=== PATIENT | female | born 1935 | race Caucasian/White ===

== ENCOUNTER 2017-02-22 12:09 | Inpatient (IN) | payer OTHER, MEDICARE ==
[~2017-02-22] VITALS: Ht 160 cm; Wt 47.0 kg
[2017-02-22] VITALS (9 sets, daily range): BP systolic 156–195; BP diastolic 72–86; PULSE 70–84; RESP 15–18; TEMP 97.9–100.6; O2SAT 93–100
[2017-02-22] MEDS ORDERED: PROT40TA PO (13:00)
[2017-02-22] MEDS ORDERED: DILT31TA PO (13:00)
[2017-02-22] MEDS ORDERED: PAXI10TA2 PO (13:00)
[2017-02-22] MEDS ORDERED: HYDR-3516 PO (13:00)
--- NOTE | 2017-02-22 13:29 | PD ---
HPI Chief Complaint: Musculoskeletal Complaint Time Seen by Provider: 13:07 Travel History International Travel<30 days: No Contact w/Intl Traveler<30days: No Traveled to known affect area: No History of Present Illness HPI 81yo F with PMH of depression and recent hip replacement presents to the ED with c/o right wrist pain and sacral pain s/p fall today. Pt was getting ready to go to the beach and was sitting in the bed and slipped on suntan oil when she got up and slid down and hurt her right wrist. Denies any head trauma, LOC , chest pain, sob, n/v, abdominal pain, focal weakness or numbness. PFSH Past Medical History Heart Rhythm Problems: Yes Cardiovascular Problems: Yes Cerebrovascular Accident: Yes Tetanus Vaccination: < 5 Years ?: Not Past Surgical History Hysterectomy: Yes Social History Alcohol Use: No Tobacco Use: No Substance Use: No Allergies-Medications (Allergen,Severity, Reaction): Coded Allergies: No Known Allergies (Unverified , 02/22/17) Reported Meds & Prescriptions Reported Meds & Active Scripts Active Reported Hydrocodone-Acetaminophen 5-325 mg Tab 1 Tab PO Q6H PRN Paxil (Paroxetine HCl) 10 Mg Tab 10 Mg PO DAILY Cardizem (Diltiazem HCl) 30 Mg Tab 30 Mg PO DAILY Protonix (Pantoprazole Sodium) 40 Mg Tab 40 Mg PO DAILY Review of Systems Except as stated in HPI: all other systems reviewed are Neg Physical Exam Narrative GENERAL: 81yo F in moderate distress. SKIN: Focused skin assessment warm/dry. HEAD: Atraumatic. Normocephalic. EYES: Pupils equal and round. No scleral icterus. No injection or drainage. ENT: No nasal bleeding or discharge. Mucous membranes pink and moist. NECK: Trachea midline. No JVD. CARDIOVASCULAR: Regular rate and rhythm. No murmur appreciated. RESPIRATORY: No accessory muscle use. Clear to auscultation. Breath sounds equal bilaterally. GASTROINTESTINAL: Abdomen soft, non-tender, nondistended. BACK: No midline ttp thoracic or lumbar spine. No ttp bilateral hips. Mild ttp S1-2. MUSCULOSKELETAL: Right wrist: +Ecchymoses and deformity and ttp distal radius. Radial pulse 2+. Pt does not want to move fingers due to pain. No ttp right elbow. FROM right elbow. Sensation intact. NEUROLOGICAL: Awake and alert. No obvious cranial nerve deficits. Motor grossly within normal limits. Sensation intact. Normal speech. PSYCHIATRIC: Appropriate mood and affect; insight and judgment normal. Data Data Last Documented VS Vital Signs Date Time Temp Pulse Resp B/P Pulse Ox O2 Delivery O2 Flow Rate FiO2 02/22/17 15:57 76 18 168/76 97 Nasal Cannula 3 02/22/17 12:11 98.1 Orders Hand, Limited (2vws) (02/22/17 ) Pelvis, Ap Only (Routine) (02/22/17 ) Complete Blood Count With Diff (02/22/17 13:15) Basic Metabolic Panel (Bmp) (02/22/17 13:15) Prothrombin Time / Inr (Pt) (02/22/17 13:15) Act Partial Throm Time (Ptt) (02/22/17 13:15) Type And Screen (02/22/17 13:15) Morphine Inj (Morphine Inj) (02/22/17 13:30) Wrist, Complete ([id number]) (02/22/17 ) Propofol 500 Mg/50 Ml Inj (Diprivan 500 (02/22/17 14:45) Wrist, Limited (Ap&Lat) (02/22/17 ) Fiberglass Sugartong Sp Ad Arm (02/22/17 ) Sling Cradle Arm (02/22/17 ) Admit To Inpatient (02/22/17 ) Vital Signs (Adult) ROGERS.Q4H (02/22/17 16:21) Hyster Driver / Telemetry ROGERS.Q8H (02/22/17 16:21) Intake + Output 06,14,22 (02/22/17 16:21) Sodium Chlor 0.45% 1000 Ml Inj (1/2 Ns 1 (02/22/17 17:00) Sodium Chloride 0.9% Flush (Ns Flush) (02/22/17 21:00) Inpatient Certification (02/22/17 ) Npo After Midnight W/ Po Meds (02/22/17 Dinner) Admit Order (Ed Use Only) (02/22/17 16:26) Consult Orthopedic (02/22/17 ) Labs Laboratory Tests Test 02/22/17 13:52 White Blood Count 14.4 TH/MM3 Red Blood Count 5.02 MIL/MM3 Hemoglobin 15.2 GM/DL Hematocrit 45.6 % Mean Corpuscular Volume 90.8 FL Mean Corpuscular Hemoglobin 30.2 PG Mean Corpuscular Hemoglobin 33.3 % Concent Red Cell Distribution Width 12.7 % Platelet Count 152 TH/MM3 Mean Platelet Volume 6.7 FL Neutrophils (%) (Auto) 86.1 % Lymphocytes (%) (Auto) 9.5 % Monocytes (%) (Auto) 4.2 % Eosinophils (%) (Auto) 0.1 % Basophils (%) (Auto) 0.1 % Neutrophils # (Auto) 12.4 TH/MM3 Lymphocytes # (Auto) 1.4 TH/MM3 Monocytes # (Auto) 0.6 TH/MM3 Eosinophils # (Auto) 0.0 TH/MM3 Basophils # (Auto) 0.0 TH/MM3 CBC Comment DIFF FINAL Differential Comment Prothrombin Time 15.1 SEC Prothromb Time International 1.3 RATIO Ratio Activated Partial 26.6 SEC Thromboplast Time Sodium Level 140 MEQ/L Potassium Level 3.6 MEQ/L Chloride Level 101 MEQ/L Carbon Dioxide Level 30.9 MEQ/L Anion Gap 8 MEQ/L Blood Urea Nitrogen 19 MG/DL Creatinine 1.43 MG/DL Estimat Glomerular Filtration 35 ML/MIN Rate Random Glucose 244 MG/DL Calcium Level 9.4 MG/DL Blood Type O POSITIVE Antibody Screen NEGATIVE Blood Bank Comment MDM Medical Decision Making Medical Screen Exam Complete: Yes Emergency Medical Condition: Yes Differential Diagnosis Fracture vs. dislocation vs. contusion Narrative Course 81yo F with right wrist deformity after slip and fall today. Xray right hand/ wrist: acute displaced, angulated fracture involving right distal radius. Acute fracture involving distal ulna. Xray pelvis showed no acute fracture or dislocation. Right wrist was reduced under procedural sedation with improved alignment. I discussed case with Dr. Pineda and he recommends admission to hospitalist and pt will need surgery. NPO after midnight. Spoke with Dr. Sharma who accepted the patient. Procedures Procedure Narrative After the risks and benefits were discussed the following procedure was performed: MODERATE SEDATION: The patient was placed on a vehicle monitor technician and pulse oximetry. An ambu bag and suction was immediately available at bedside. The patient was monitored by the nurse. Oxygen saturation , heart rate and blood pressure were monitored. Procedural sedation was acheived using 30mg of propofol . The patient was observed until awake and alert. Procedural Sedation time in attendance was 25 minutes. Diagnosis Primary Impression: Fracture of distal end of radius and ulna Qualified Code: S52.501A - Fracture of distal end of radius and ulna, right, closed, initial encounter Admitting Information Admitting Physician Requests: Admit Vera Han DO Feb 22, 2017 13:29 Vera Han DO Feb 22, 2017 13:29
[2017-02-22] MEDS ORDERED: MORPHINE SULFATE 4 MG/ML INJ IV PUSH ONE (13:30)
[2017-02-22 14:16] LABS: AUTOMATED NEUTROPHIL # 12.4 TH/MM3 (1.8-7.7); BASOPHIL % 0.1 % (0.0-2.0); EOSINOPHIL % 0.1 % (0.0-4.0); HEMATOCRIT 45.6 % (35.0-46.0); HEMO FLAGS DIFF FINAL; LYMPH % 9.5 % (9.0-44.0); LYMPHOCYTE # 1.4 TH/MM3 (1.0-4.8); MEAN CELL VOLUME 90.8 FL (80.0-100.0); MEAN CORPUSCULAR HEMOGLOBIN 30.2 PG (27.0-34.0); MEAN CORPUSCULAR HGB CONC 33.3 % (32.0-36.0); MONO % 4.2 % (0.0-8.0); NEUT % 86.1 % (16.0-70.0); PLATELET COUNT 152 TH/MM3 (150-450); RED BLOOD COUNT 5.02 MIL/MM3 (4.00-5.30); RED CELL DISTRIBUTION WIDTH 12.7 % (11.6-17.2); WHITE BLOOD COUNT 14.4 TH/MM3 (4.0-11.0)
[2017-02-22 14:19] LABS: APTT (PATIENT) 26.6 SEC (24.3-30.1); INTERNATIONAL NORMALIZED RATIO 1.3 RATIO; PROTHROMBIN TIME - PATIENT 15.1 SEC (9.8-11.6)
[2017-02-22 14:27] LABS: BICARBONATE 30.9 MEQ/L (21.0-32.0); POTASSIUM 3.6 MEQ/L (3.5-5.1)
--- NOTE | 2017-02-22 14:32 | RADRPT ---
EXAM DATE/TIME: 02/22/2017 13:27 [facility] COMPARISON: No previous studies available for comparison. INDICATIONS : Fall. Right wrist pain. MEDICAL HISTORY : None. SURGICAL HISTORY : Right hip fracture repair. ENCOUNTER: Initial ACUITY: 1 day PAIN SCORE: 8/10 LOCATION: Right wrist FINDINGS: There is evidence of an acute displaced and angulated fracture involving the right distal radius. The re is also an acute fracture involving the distal ulna. Severe osteoarthritis is noted involving the first carpometacarpal joint. Severe diffuse osteoporosis is noted involving the bones of the right hand. CONCLUSION: 1. Acute displaced, angulated fracture involving the right distal radius. 2. Acute fracture involving the distal ulna. 3. 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 4. Severe osteoporosis involving the bones of the right hand. Kevin Montano MD on February 22, 2017 at 14:07 Board Certified Radiologist. This report was verified electronically.
--- NOTE | 2017-02-22 14:36 | RADRPT ---
EXAM DATE/TIME: 02/22/2017 13:29 [facility] COMPARISON: No previous studies available for comparison. INDICATIONS : Fall. Right wrist pain and deformity. MEDICAL HISTORY : None. SURGICAL HISTORY : Right hip fracture repair. ENCOUNTER: Initial ACUITY: 1 day PAIN SCORE: 8/10 LOCATION: Right wrist FINDINGS: There is evidence of an acute displaced angulated fracture involving the right distal radius. There is also an acute fracture involving the distal ulna. Severe osteoarthritis is noted involving the fir st carpometacarpal joint. Diffuse osteoporosis is noted involving the bones of the right wrist. Mod erate osteoarthritis is noted involving the scaphotrapezium and scaphotrapezoid joints. CONCLUSION: 1. Acute displaced and angulated fracture involving the right distal radius. 2. Acute fracture involving the distal ulna. 3. Severe osteoarthritis involving the first carpometacarpal joint and moderate osteoarthritis involv ing the scaphotrapezium and scaphotrapezoid joints. 4. 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 Kevin Montano MD on February 22, 2017 at 14:09 Board Certified Radiologist. This report was verified electronically.
--- NOTE | 2017-02-22 14:37 | RADRPT ---
EXAM DATE/TIME: 02/22/2017 13:35 [facility] COMPARISON: No previous studies available for comparison. INDICATIONS : Fall. Pelvic pain. MEDICAL HISTORY : None. SURGICAL HISTORY : Right hip fracture repair. ENCOUNTER: Initial ACUITY: 1 day PAIN SCORE: 4/10 LOCATION: Bilateral pelvis FINDINGS: Hardware is noted within the right proximal femur status post ORIF. There is no acute fracture or dis location of the bony pelvis. Degenerative changes are noted involving the lower lumbar spine. CONCLUSION: 1. No acute fracture or dislocation. 2. Degenerative changes involving the lower lumbar spine. Kevin Montano MD on February 22, 2017 at 14:12 Board Certified Radiologist. This report was verified electronically.
[2017-02-22] MEDS ORDERED: PROPOFOL 500 MG/50 ML BTL IV ONE (14:45)
--- NOTE | 2017-02-22 16:09 | RADRPT ---
EXAM DATE/TIME: 02/22/2017 15:28 [facility] COMPARISON: WRIST RIGHT COMPLETE ([id number]), February 22, 2017, 13:29. INDICATIONS : Post reduction right wrist. MEDICAL HISTORY : None. SURGICAL HISTORY : Hip ENCOUNTER: Subsequent ACUITY: 1 day PAIN SCORE: 5/10 LOCATION: Right wrist FINDINGS: The right wrist has been casted status post closed reduction of right distal radial and ulnar fractur es. There is some residual displacement of the distal radial fragment dorsally. Arthritic changes a re again noted involving the wrist. CONCLUSION: Status post closed reduction and casting of right distal radial and ulnar fractures with some residua l dorsal displacement of the radial fracture fragment. Kevin Montano MD on February 22, 2017 at 15:57 Board Certified Radiologist. This report was verified electronically.
[2017-02-22] MEDS: SODIUM CHLOR 0.45% 1000 ML INJ 1,000 ML IV SCH (17:00)
--- NOTE | 2017-02-22 17:18 | HHI.HP ---
[facility] Service [facility] Primary Care Physician Non-Staff Admission Diagnosis Distal radius and ulna fracture Diagnoses: Chief Complaint: Fall resulting in a radial/ulnar fracture Travel History International Travel<30 Days: No Contact w/Intl Traveler <30 Da: No Traveled to Known Affected Are: No History of Present Illness This is a pleasant 81-year-old female past medical history of CVA with no deficit, history of tachycardia, and GERD who presented with a fall. Patient is visiting from [place] and stated that she used a spray for some block in the house which on the tile. Patient stated that she slipped because of this and landed on her butt on an outstretched arm. Patient did not hit her head or lose any consciousness. Patient stated that she had severe pain so was brought to the emergency department. Patient stated that in the past she had right hip surgery and after surgery she had respiratory failure from anesthesia was in the ICU for a few days. Patient stated that she does get dyspnea with walking from her bedroom to the living room. She denies any chest pain, lightheadedness or dizziness or palpitation with exertion. She stated that this has been a chronic problem. Patient stated that she was supposed to be worked up by siding installer but has not followed with a siding installer yet. Review of Systems Constitutional: DENIES: Diaphoretic episodes, Fatigue, Fever, Weight gain, Weight loss, Chills, Dizziness, Change in appetite, Night Sweats Endocrine: DENIES: Abnorml menstrual pattern, Heat/cold intolerance, Polydipsia , Polyuria, Polyphagia Eyes: DENIES: Blurred vision, Diplopia, Eye inflammation, Eye pain, Vision loss , Photosensitivity, Double Vision Ears, nose, mouth, throat: DENIES: Tinnitus, Hearing loss, Vertigo, Nasal discharge, Oral lesions, Throat pain, Hoarseness, Ear Pain, Running Nose, Epistaxis, Sinus Pain, Toothache, Odynophagia Respiratory: COMPLAINS OF: Shortness of breath, DENIES: Apneas, Cough, Snoring , Wheezing, Hemoptysis, Sputum production Cardiovascular: DENIES: Chest pain, Palpitations, Syncope, Dyspnea on Exertion , PND, Lower Extremity Edema, Orthopnea, Claudication Gastrointestinal: DENIES: Abdominal pain, Black stools, Bloody stools, Constipation, Diarrhea, Nausea, Vomiting, Difficulty Swallowing, Anorexia Genitourinary: DENIES: Abnormal vaginal bleeding, Dysmenorrhea, Dyspareunia, Sexual dysfunction, Urinary frequency, Urinary incontinence, Urgency, Hematuria , Dysuria, Nocturia, Vaginal discharge Musculoskeletal: COMPLAINS OF: Joint pain, DENIES: Muscle aches, Stiffness, Joint Swelling, Back pain, Neck pain Integumentary: DENIES: Abnormal pigmentation, Pruritus, Rash, Nail changes, Breast masses, Breast skin changes, Nipple discharge Hematologic/lymphatic: DENIES: Bruising, Lymphadenopathy Immunologic/allergic: DENIES: Eczema, Urticaria Neurologic: DENIES: Abnormal gait, Headache, Localized weakness, Paresthesias, Seizures, Speech Problems, Tremor, Poor Balance Psychiatric: DENIES: Anxiety, Confusion, Mood changes, Depression, Hallucinations, Agitation, Suicidal Ideation, Homicidal Ideation, Delusions Past Family Social History Past Medical History Tachycardia History of CVA GERD Anxiety Past Surgical History History right hip fracture repair Reported Medications Hydrocodone-Acetaminophen 5-325 mg Tab 1 Tab PO Q6H PRN Paxil (Paroxetine HCl) 10 Mg Tab 10 Mg PO DAILY Cardizem (Diltiazem HCl) 30 Mg Tab 30 Mg PO DAILY Protonix (Pantoprazole Sodium) 40 Mg Tab 40 Mg PO DAILY Allergies: Coded Allergies: No Known Allergies (Unverified , 02/22/17) Active Ordered Medications Current Medications Morphine Sulfate (Morphine Inj) 2 mg ONCE ONCE IV PUSH Last administered on 14:07; Start 02/22/17 at 13:30; Stop 02/22/17 at 13:31; Status DC Propofol 50 mg 50 mg ONCE ONCE IV Last administered on 02/22/17 15:37; Start 02/22/17 at 14:45; Stop 02/22/17 at 14:46; Status DC Sodium Chloride (1/2 NS 1000 ml Inj) 1,000 ml @ 75 mls/hr [id number] IV ; Start at 17:00 Sodium Chloride (NS Flush) 2 ml BID IV FLUSH ; Start 02/22/17 at 21:00 Diltiazem HCl (Cardizem) 30 mg DAILY PO ; Start 02/23/17 at 09:00; Status UNV Acetaminophen/ Hydrocodone Bitart ([place] 5-325 Mg) 1 tab Q6H PRN PO PAIN; Start 02/22/17 at 17:15 Pantoprazole Sodium (Protonix) 40 mg DAILY PO ; Start 02/23/17 at 09:00 Non-Formulary Medication 10 mg DAILY PO ; Start 02/23/17 at 09:00; Status UNV Clonidine (Catapres) 0.1 mg Q8HR PRN PO SBP>160 or DBP>100; Start 02/22/17 at 17:15; Status UNV Family History No past family history. Social History Patient lives in [facility]. She denied tobacco or alcohol use. Physical Exam Vital Signs Vital Signs Date Time Temp Pulse Resp B/P Pulse Ox O2 Delivery O2 Flow Rate FiO2 02/22/17 15:57 76 18 168/76 97 Nasal Cannula 3 02/22/17 15:42 76 18 189/81 98 Nasal Cannula 3 02/22/17 15:24 98 3.00 02/22/17 12:11 98.1 84 15 195/86 99 Physical Exam GENERAL: This is a well-nourished, well-developed patient, in no apparent distress. SKIN: No rashes, ecchymoses or lesions. Cool and dry. HEAD: Atraumatic. Normocephalic. No temporal or scalp tenderness. EYES: Pupils equal round and reactive. Extraocular motions intact. No scleral icterus. No injection or drainage. ENT: Nose without bleeding, purulent drainage or septal hematoma. Throat without erythema, tonsillar hypertrophy or exudate. Uvula midline. Airway patent. NECK: Trachea midline. No JVD or lymphadenopathy. Supple, nontender, no meningeal signs. CARDIOVASCULAR: Regular rate and rhythm without murmurs, gallops, or rubs. RESPIRATORY: Clear to auscultation. Breath sounds equal bilaterally. No wheezes , rales, or rhonchi. GASTROINTESTINAL: Abdomen soft, non-tender, nondistended. No hepato-splenomegaly , or palpable masses. No guarding. MUSCULOSKELETAL: Right arm swelling with limited range of motion of the wrist. NEUROLOGICAL: Awake and alert. Cranial nerves II through XII intact. Motor and sensory grossly within normal limits. Five out of 5 muscle strength in all muscle groups. Normal speech. Laboratory Laboratory Tests Test 7/25/17 13:52 White Blood Count 14.4 Red Blood Count 5.02 Hemoglobin 15.2 Hematocrit 45.6 Mean Corpuscular Volume 90.8 Mean Corpuscular Hemoglobin 30.2 Mean Corpuscular Hemoglobin 33.3 Concent Red Cell Distribution Width 12.7 Platelet Count 152 Mean Platelet Volume 6.7 Neutrophils (%) (Auto) 86.1 Lymphocytes (%) (Auto) 9.5 Monocytes (%) (Auto) 4.2 Eosinophils (%) (Auto) 0.1 Basophils (%) (Auto) 0.1 Neutrophils # (Auto) 12.4 Lymphocytes # (Auto) 1.4 Monocytes # (Auto) 0.6 Eosinophils # (Auto) 0.0 Basophils # (Auto) 0.0 CBC Comment DIFF FINAL Differential Comment Prothrombin Time 15.1 Prothromb Time International 1.3 Ratio Activated Partial 26.6 Thromboplast Time Sodium Level 140 Potassium Level 3.6 Chloride Level 101 Carbon Dioxide Level 30.9 Anion Gap 8 Blood Urea Nitrogen 19 Creatinine 1.43 Estimat Glomerular Filtration 35 Rate Random Glucose 244 Calcium Level 9.4 Blood Type O POSITIVE Antibody Screen NEGATIVE Blood Bank Comment Result Diagram: 02/22/17 1352 02/22/17 1352 Imaging Last Impressions Wrist X-Ray 02/22/17 0000 Signed Impressions: Service Date/Time: Wednesday, February 22, 2017 13:29 - CONCLUSION: 1. Acute displaced and angulated fracture involving the right distal radius. 2. Acute fracture involving the distal ulna. 3. 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 4. 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 Kevin Montano MD Pelvis X-Ray 02/22/17 0000 Signed Impressions: Service Date/Time: Wednesday, February 22, 2017 13:35 - CONCLUSION: 1. No acute fracture or dislocation. 2. Degenerative changes involving the lower lumbar spine. Kevin Montano MD Hand X-Ray 02/22/17 0000 Signed Impressions: Service Date/Time: Wednesday, February 22, 2017 13:27 - CONCLUSION: 1. Acute displaced, angulated fracture involving the right distal radius. 2. Acute fracture involving the distal ulna. 3. 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 4. Severe osteoporosis involving the bones of the right hand. Kevin Montano MD Assessment and Plan Assessment and Plan 81-year-old female who presented with a mechanical fall Acute displaced and angulated fracture involving the right distal radius and acute fracture involving the distal ulna. -Orthopedic surgery consulted and recommended surgery. -Patient does have a baseline dyspnea and past complications after surgery. Will need to consult siding installer for cardiac clearance. -Will get EKG, chest x-ray, echo. -Will have patient nothing by mouth tonight. 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 Patient will need a DEXA scan as outpatient. Exertional dyspnea -Unknown diagnosis. This has been patient's baseline. -see workup as above. History of tachycardia/GERD/anxiety -Will restart home medication. DVT prophylaxis -SCDs Code Status Discussed CODE STATUS with patient and she wants to be DO NOT RESUSCITATE. During discussion of CODE STATUS her 2 daughters were at the bedside. Discussed Condition With patient and 2 daughters Physician Certification 2 Midnight Certification Type: Admission for Inpatient Services Order for Inpatient Services The services are ordered in accordance with Medicare regulations or non- Medicare payer requirements, as applicable. In the case of services not specified as inpatient-only, they are appropriately provided as inpatient services in accordance with the 2-midnight benchmark. Estimated LOS (days): 2 2 days is the estimated time the patient will need to remain in the hospital, assuming treatment plan goals are met and no additional complications. Post-Hospital Plan: Home Health Marlene Sharma MD Feb 22, 2017 17:18
[2017-02-22] MEDS ORDERED: PILL SPLITTER OTHER PRN (17:30)
--- NOTE | 2017-02-22 17:45 | RADRPT ---
EXAM DATE/TIME: 02/22/2017 17:29 [facility] COMPARISON: No previous studies available for comparison. INDICATIONS : Shortness of breath. MEDICAL HISTORY : Cerebrovascular disease. SURGICAL HISTORY : Hysterectomy. ENCOUNTER: Initial ACUITY: 1 day PAIN SCORE: 0/10 LOCATION: Bilateral chest FINDINGS: PA and lateral views of the chest show hyperinflation to lungs. A calcified granuloma is seen within the left lower lobe. No infiltrate or effusion. Heart is mildly enlarged. Aorta is calcified and mild ly tortuous. Old right-sided rib fractures and left humeral neck fracture noted. CONCLUSION: 1. No acute disease. 2. Hyperinflation suggesting COPD. 3. Mild cardiomegaly. Jj Miller Jr., MD on February 22, 2017 at 17:43 Board Certified Radiologist. This report was verified electronically.
[2017-02-22] MEDS: SODIUM CHLORIDE 0.9% FLUSH 10 ML FLUSH IV FLUSH SCH (20:24)
[2017-02-22] MEDS: cloNIDine HCL 0.1 MG TAB PO PRN (20:24)
[2017-02-23] VITALS (8 sets, daily range): BP systolic 104–184; BP diastolic 65–81; PULSE 64–94; RESP 16–18; TEMP 97.5–99.3; O2SAT 94–96
[2017-02-23] MEDS ORDERED: INSULIN HUMAN REGULAR 1,000 UNITS/10 ML VIAL SQ PRN (03:30)
[2017-02-23] MEDS ORDERED: LACTATED RINGER'S 1000 ML IV PRN (03:30)
[2017-02-23] MEDS ORDERED: SODIUM CHLORID 0.9% 500 ML IV PRN (03:30)
[2017-02-23] MEDS ORDERED: CHLORHEXIDINE GLUCONATE 2 % 1 PACK (2 CLOTHS) TOPICAL PRN (03:30)
[2017-02-23] MEDS ORDERED: POVIDONE IODINE 5% (ANTISEPSIS KIT) 4 APPLICATIONS EACH NARE PRN (03:30)
[2017-02-23 06:59] LABS: HEMATOCRIT 36.1 % (35.0-46.0); MEAN CELL VOLUME 89.3 FL (80.0-100.0); MEAN CORPUSCULAR HEMOGLOBIN 30.9 PG (27.0-34.0); MEAN CORPUSCULAR HGB CONC 34.6 % (32.0-36.0); PLATELET COUNT 114 TH/MM3 (150-450); RED BLOOD COUNT 4.04 MIL/MM3 (4.00-5.30); RED CELL DISTRIBUTION WIDTH 12.5 % (11.6-17.2); REVIEW FLAG FINAL; WHITE BLOOD COUNT 9.3 TH/MM3 (4.0-11.0)
[2017-02-23 07:20] LABS: BICARBONATE 28.8 MEQ/L (21.0-32.0); POTASSIUM 3.3 MEQ/L (3.5-5.1)
[2017-02-23] MEDS: PARoxetine HCL 20 MG TAB PO SCH (08:58)
[2017-02-23] MEDS: PANTOPRAZOLE SOD 40 MG DELAYED RELEASE TAB PO SCH (08:58)
[2017-02-23] MEDS: DILTIAZEM HCL 30 MG TAB PO SCH (08:58)
[2017-02-23] MEDS: SODIUM CHLORIDE 0.9% FLUSH 10 ML FLUSH IV FLUSH SCH ×2 (09:00→21:00)
--- NOTE | 2017-02-23 09:08 | PD.ORT.PN ---
Subjective Subjective Remarks Visiting from out of town. Slip and fall on wet floor. Right distal radius fracture Objective Vitals Vital Signs Date Time Temp Pulse Resp B/P Pulse Ox O2 Delivery O2 Flow Rate FiO2 02/23/17 08:00 98.6 71 18 153/71 95 02/23/17 04:10 98.6 75 17 159/74 94 02/23/17 00:47 Nasal Cannula 3.00 02/22/17 23:55 100.6 79 17 156/72 94 02/22/17 21:05 71 02/22/17 19:45 75 02/22/17 18:51 60 16 156/73 97 02/22/17 18:51 97.9 70 17 175/79 93 02/22/17 18:27 78 18 178/81 100 Room Air 2 02/22/17 15:57 76 18 168/76 97 Nasal Cannula 3 02/22/17 15:42 76 18 189/81 98 Nasal Cannula 3 02/22/17 15:24 98 Nasal Cannula 3.00 02/22/17 15:24 98 3.00 02/22/17 12:11 98.1 84 15 195/86 99 I/O 02/22/17 02/22/17 02/22/17 02/23/17 02/23/17 02/23/17 07:00 15:00 23:00 07:00 15:00 23:00 Intake Total 146 ml 461 ml 240 ml Balance 146 ml 461 ml 240 ml Intake Oral 240 ml IV Total 146 ml 461 ml # Voids 2 # Bowel Movements 0 Result Diagram: 02/23/17 0551 02/23/17 0551 Other Results Laboratory Tests Test 02/22/17 13:52 Prothrombin Time 15.1 SEC (9.8-11.6) Prothromb Time International 1.3 RATIO Ratio Imaging Last 72 hours Impressions Wrist X-Ray 02/22/17 0000 Signed Impressions: Service Date/Time: Wednesday, February 22, 2017 15:28 - CONCLUSION: Status post closed reduction and casting of right distal radial and ulnar fractures with some residual dorsal displacement of the radial fracture fragment. Kevin Montano MD Wrist X-Ray 02/22/17 0000 Signed Impressions: Service Date/Time: Wednesday, February 22, 2017 13:29 - CONCLUSION: 1. Acute displaced and angulated fracture involving the right distal radius. 2. Acute fracture involving the distal ulna. 3. 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 4. 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 Kevin Montano MD Pelvis X-Ray 02/22/17 0000 Signed Impressions: Service Date/Time: Wednesday, February 22, 2017 13:35 - CONCLUSION: 1. No acute fracture or dislocation. 2. Degenerative changes involving the lower lumbar spine. Kevin Montano MD Hand X-Ray 02/22/17 0000 Signed Impressions: Service Date/Time: Wednesday, February 22, 2017 13:27 - CONCLUSION: 1. Acute displaced, angulated fracture involving the right distal radius. 2. Acute fracture involving the distal ulna. 3. 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 4. Severe osteoporosis involving the bones of the right hand. Kevin Montano MD Chest X-Ray 02/22/17 0000 Signed Impressions: Service Date/Time: Wednesday, February 22, 2017 17:29 - CONCLUSION: 1. No acute disease. 2. Hyperinflation suggesting COPD. 3. Mild cardiomegaly. Jj Miller Jr., MD Objective Remarks Right upper extremity: Sure tong splint intact. No pain shoulder. Distally intact sensation of her radial ulnar and median nerve distributions with good capillary refills. She is able to move her fingers both full extension and flexion Assessment & Plan Assessment and Plan Angulated right distal radius fracture Maintain splint Surgery for open reduction internal fixation of right distal radius when medically cleared. More than likely will be on 02/24. Continue nothing by mouth status. If not cleared this morning we will resume diet. And make her nothing by mouth after midnight Yayo Yoo Jr. Feb 23, 2017 09:08
--- NOTE | 2017-02-23 09:31 | MB ---
cc: SOLIS PRABHAKAR M.D. DATE OF CONSULTATION 02/23/2017 REASON FOR CONSULTATION Cardiac clearance. HISTORY OF PRESENT ILLNESS The patient is a 81-year-old white female from [place], with a history of CVA two years ago, gastroesophageal reflux disease, diabetes who was admitted to the hospital status post a fall resulting in right wrist fracture. We have been asked to see her for cardiac clearance. The patient states for some time now she has had intermittent episodes of primarily exertional left-sided chest discomfort described as "pressure." The chest discomforts usually last only a few minutes. The are not associated with shortness of breath, nausea or diaphoresis. She denies any episodes occurring at rest or awakening her from sleep. The patient notes chronic moderate dyspnea on exertion. For the most part she is sedentary. She denies paroxysmal nocturnal dyspnea, pedal edema, palpitations, lightheadedness, syncope, near-syncope. PAST MEDICAL HISTORY 1. CVA two years ago. 2. Gastroesophageal reflux disease. 3. Borderline diet-controlled diabetes. PAST SURGICAL HISTORY Hysterectomy. CARDIAC MEDICATIONS AT HOME Cardizem 30 mg daily. ALLERGIES No known drug allergies. FAMILY HISTORY Noncontributory. SOCIAL HISTORY The patient is a former smoker. She quit at age 62. She denies alcohol abuse. REVIEW OF SYSTEMS As in the History of Present Illness, otherwise negative or noncontributory. She also denies headache, visual changes, unilateral weakness or numbness, abdominal pain, melena, dyspepsia, bright red blood per rectum. PHYSICAL EXAMINATION VITAL SIGNS: Blood pressure 159/74 with a pulse of 75, respirations 16. PHYSICAL EXAMINATION HEAD AND NECK: On examination jugular venous pressure is normal. Carotid pulses are 2+ bilaterally and without bruits. CHEST: Examination of the chest reveals clear lung ojeda. HEART: On cardiac examination she has a regular rhythm and rate with a grade 2 to 3/6 systolic murmur heard throughout the precordium. The S2 heart sound is normal. No gallop is audible. ABDOMINAL EXAMINATION: She has a soft, nontender abdomen. Bowel sounds are present. There is no definite hepatosplenomegaly. EXTREMITIES: Examination of the extremities reveals no clubbing, cyanosis or edema. EKG Sinus rhythm, lateral ST and T-wave abnormality, consider ischemia. LABORATORY DATA Normal CBC, potassium 3.3, BUN 18, creatinine 1.18. CHEST X-RAY Hyperinflation suggesting COPD, no acute disease. IMPRESSION A 81-year-old white female with a history of borderline diabetes, CVA, gastroesophageal reflux disease, now admitted with a right wrist fracture. We have been asked to see the patient for cardiac clearance. The patient relates intermittent episodes of angina-like chest discomfort. These angina-like chest pains seem to occur with overall minimal to mild exertion. She may very well have underlying severe coronary artery disease. The patient also relates chronic dyspnea without any other signs or symptoms of congestive heart failure. She does have a systolic murmur on exam suggestive of mitral regurgitation and/or aortic valve sclerosis. Her risk factors for coronary disease include advanced age, borderline diabetes. She may also have hypertension. RECOMMENDATIONS I would check an echocardiogram to assess her left ventricular function and her valvular function as well as a Lexiscan nuclear stress test. At his point it appears her cardiovascular risk for perioperative mortality/morbidity may be at least moderate in degree but will await results of the above testing before making any conclusions about her risk. Solis Prabhakar MD [facility]/SUSHANT /8:10 AM /9:16 AM MTDD
--- NOTE | 2017-02-23 09:43 | MB ---
cc: SHAGGY GRANDE DATE OF CONSULTATION 02/23/2017 REASON FOR CONSULTATION Right wrist fracture. CONSULTING PHYSICIAN Dr. Marlene Sharma. HISTORY Ms. Rizo is a 81-year-old female who has a history of previous CVA without deficits. She is here visiting from [place]. She states that her family members had used some spray sunblock. Some of it had gotten on the floor, the floor was slippery. She slipped and fell and landed on her right wrist. She had immediate right wrist pain. She presented to the emergency room where x-rays revealed a displaced right distal radius fracture. She is currently awake and alert. Her only complaint is her right wrist. Pain is worse with movement and is improved with rest. She has a history of previous left wrist fracture treated open reduction internal fixation. PAST MEDICAL HISTORY Illnesses: 1. Tachycardia 2. CVA 3. Reflux 4. Anxiety SURGERIES 1. Left wrist ORIF 2. Right hip ORIF MEDICATIONS Medications include: 1. Hydrocodone 2. Paxil 3. Cardizem 4. Protonix ALLERGIES NO KNOWN DRUG ALLERGIES. FAMILY HISTORY Noncontributory SOCIAL HISTORY The patient lives in [place]. She denies alcohol, tobacco or drug use. REVIEW OF SYSTEMS The patient denies headache, visual changes, neck pain, chest pain, shortness of breath, abdominal pain, nausea, vomiting, recent weight loss or numbness or tingling of extremities. She denies bowel or bladder incontinence. She complains of right wrist pain. Pain is worse with movement. PHYSICAL EXAMINATION The patient is a pleasant 81-year female who is awake and alert. She is alert and oriented x3. She appears well-developed and well-nourished. VITAL SIGNS: Temperature 98.6, pulse 71, respirations 18, blood pressure 153/71, O2 sat 95% on three liters nasal cannula. HEAD: The patient is normocephalic. EYES: Pupils are equal. NECK: Soft and nontender. Trachea is midline. ABDOMEN: Soft, nontender, nondistended. EXTREMITIES: Examination of the right arm reveals no pain with shoulder or elbow motion. She is diffusely tender around the wrist. Skin is intact. Pulses are palpable. She has good cap refill in her fingers. Examination of left arm reveals no pain with shoulder, elbow or wrist motion. Skin is intact. Radial pulses palpable. Sensation is intact. Examination of bilateral lower extremities reveals no significant pain with hip, knee or ankle motion. Skin is intact to both feet. Dorsalis pedis pulses are palpable. Sensation is intact. X-RAYS X-rays of the right wrist were reviewed. X-rays reveal an angulated and partially displaced right distal radius fracture. IMPRESSION 1. Right distal radius fracture. 2. Probable osteoporosis 3. History of CVA. PLAN Treatment options were discussed with the patient. I discussed surgical and nonsurgical options. At this point, the patient states she would prefer to have surgery to help stabilize and hold the fracture reduced. The risks of surgery include bleeding, infection, injury to arteries, nerves and blood vessels, nonunion, malunion, painful hardware as well as medical complications including blood clot, stroke, heart attack and . I did explain to her that nonoperative treatment in a cast may yield acceptable alignment. Her fracture does not appear to be relatively unstable and may likely displace in the cast. All questions were answered. A mid-level provider in my office, nurse practitioner or PA, may see this patient on a follow-up basis and continue to implement the objective of this plan including: Starting or adjusting medications, injections of muscle, tendon, bursa or joints, cast application, orthotic or brace application, physical therapy, further radiographic studies including x-ray, MRI, CT, ultrasounds or bone scan, vascular studies, neurologic studies, or other specialist consultations, and proceeding with surgical management as appropriate. MD BRYCE Miranda/KENDALL /9:04 AM /9:31 AM
[2017-02-23] MEDS: SODIUM CHLOR 0.45% 1000 ML INJ 1,000 ML IV SCH ×2 (09:44→21:00)
[2017-02-23] MEDS ORDERED: REGADENOSON INJ 0.4 MG/5 ML SYR ONE (13:09)
--- NOTE | 2017-02-23 13:48 | HHI.PR ---
Subjective Remarks Follow-up for wrist fracture Patient seen at the bedside and she is scheduled to get a nuclear stress test soon. Her siblings are at the bedside. They stated that they made a mistake and that patient did not go to the ICU after hip surgery. She stated that she did well with anesthesia. Patient also has a history of tobacco use. She stated that she smoked for about 30 years and stopped around the age of 62. Otherwise patient has no other complaints. Her daughters at the bedside. Objective Vitals Vital Signs Date Time Temp Pulse Resp B/P Pulse Ox O2 Delivery O2 Flow Rate FiO2 02/23/17 11:44 97.5 69 18 140/66 96 02/23/17 08:00 98.6 71 18 153/71 95 02/23/17 04:10 98.6 75 17 159/74 94 02/23/17 00:47 Nasal Cannula 3.00 02/22/17 23:55 100.6 79 17 156/72 94 02/22/17 21:05 71 02/22/17 19:45 75 02/22/17 18:51 60 16 156/73 97 02/22/17 18:51 97.9 70 17 175/79 93 02/22/17 18:27 78 18 178/81 100 Room Air 2 02/22/17 15:57 76 18 168/76 97 Nasal Cannula 3 02/22/17 15:42 76 18 189/81 98 Nasal Cannula 3 02/22/17 15:24 98 Nasal Cannula 3.00 02/22/17 15:24 98 3.00 I/O 02/22/17 02/22/17 02/22/17 02/23/17 02/23/17 02/23/17 07:00 15:00 23:00 07:00 15:00 23:00 Intake Total 146 ml 461 ml 240 ml Balance 146 ml 461 ml 240 ml Intake Oral 240 ml IV Total 146 ml 461 ml # Voids 2 # Bowel Movements 0 Result Diagram: 02/23/17 0551 02/23/17 0551 Imaging Last Impressions Wrist X-Ray 02/22/17 0000 Signed Impressions: Service Date/Time: Wednesday, February 22, 2017 15:28 - CONCLUSION: Status post closed reduction and casting of right distal radial and ulnar fractures with some residual dorsal displacement of the radial fracture fragment. Kevin Montano MD Pelvis X-Ray 02/22/17 0000 Signed Impressions: Service Date/Time: Wednesday, February 22, 2017 13:35 - CONCLUSION: 1. No acute fracture or dislocation. 2. Degenerative changes involving the lower lumbar spine. Kevin Montano MD Hand X-Ray 02/22/17 0000 Signed Impressions: Service Date/Time: Wednesday, February 22, 2017 13:27 - CONCLUSION: 1. Acute displaced, angulated fracture involving the right distal radius. 2. Acute fracture involving the distal ulna. 3. 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 4. Severe osteoporosis involving the bones of the right hand. Kevin Montano MD Chest X-Ray 02/22/17 0000 Signed Impressions: Service Date/Time: Wednesday, February 22, 2017 17:29 - CONCLUSION: 1. No acute disease. 2. Hyperinflation suggesting COPD. 3. Mild cardiomegaly. Jj Miller Jr., MD Objective Remarks GENERAL: This is a well-nourished, well-developed patient, in no apparent distress. CARDIOVASCULAR: Regular rate and rhythm without murmurs, gallops, or rubs. RESPIRATORY: Clear to auscultation. Breath sounds equal bilaterally. No wheezes , rales, or rhonchi. GASTROINTESTINAL: Abdomen soft, non-tender, nondistended. No hepato-splenomegaly , or palpable masses. No guarding. MUSCULOSKELETAL: Right arm swelling with limited range of motion of the wrist. NEUROLOGICAL: Awake and alert. Cranial nerves II through XII intact. Motor and sensory grossly within normal limits. Five out of 5 muscle strength in all muscle groups. Normal speech. Medications and IVs Current Medications Morphine Sulfate (Morphine Inj) 2 mg ONCE ONCE IV PUSH Last administered on 14:07; Start 02/22/17 at 13:30; Stop 02/22/17 at 13:31; Status DC Propofol 50 mg 50 mg ONCE ONCE IV Last administered on 02/22/17 15:37; Start 02/22/17 at 14:45; Stop 02/22/17 at 14:46; Status DC Sodium Chloride (1/2 NS 1000 ml Inj) 1,000 ml @ 75 mls/hr [id number] IV Last administered on 02/23/17 09:44; Start 02/22/17 at 17:00 Sodium Chloride (NS Flush) 2 ml BID IV FLUSH Last administered on 02/22/17 20: 24; Start 02/22/17 at 21:00 Diltiazem HCl (Cardizem) 30 mg DAILY PO Last administered on 02/23/17 08:58; Start 02/23/17 at 09:00 Acetaminophen/ Hydrocodone Bitart ([place] 5-325 Mg) 1 tab Q6H PRN PO PAIN; Start 02/22/17 at 17:15 Pantoprazole Sodium (Protonix) 40 mg DAILY PO Last administered on 02/23/17 08 :58; Start 02/23/17 at 09:00 Paroxetine HCl (Paxil) 10 mg DAILY PO Last administered on 02/23/17 08:58; Start 02/23/17 at 09:00 Clonidine (Catapres) 0.1 mg Q8H PRN PO SBP>160 or DBP>100 Last administered on 02/22/17 20:24; Start 02/22/17 at 17:15 Miscellaneous 1 ea 1 ea UNSCH PRN OTHER SEE LABEL COMMENTS; Start 02/22/17 at 17:30 Lactated Ringer's 1,000 ml @ 30 mls/hr Q24H PRN IV SEE LABEL COMMENTS; Start at 03:30; Stop 02/26/17 at 03:29 Sodium Chloride (NS 500 ml Inj) 500 ml @ 30 mls/hr [id number] PRN IV SEE LABEL COMMENTS; Start 02/23/17 at 03:30; Stop 02/26/17 at 03:29 Povidone Iodine (Betadine 5% Antisepsis Kit) 1 applic ADVANCED MANUFACTURING ASSOCIATE PRN EACH NARE SEE LABEL COMMENTS; Start 02/23/17 at 03:30; Stop 02/26/17 at 03:29 Chlorhexidine Gluconate (Chlorhexidine 2% Cloth) 3 pack [employer]ED MANUFACTURING ASSOCIATE PRN TOPICAL SEE LABEL COMMENTS; Start 02/23/17 at 03:30; Stop 02/26/17 at 03:29 Insulin Human Regular (NovoLIN R INJ) See Protocol Table ... ADVANCED MANUFACTURING ASSOCIATE PRN SQ SEE PROTOCOL TABLE; Start 02/23/17 at 03:30; Stop 02/26/17 at 03:29 Regadenoson (Lexiscan Inj) 0.4 mg STK-MED ONCE .ROUTE Last administered on 02/23t 13:09; Start 02/23/17 at 13:09; Stop 02/23/17 at 13:10; Status DC A/P Assessment and Plan 81-year-old female who presented with a mechanical fall Acute displaced and angulated fracture involving the right distal radius and acute fracture involving the distal ulna. -Orthopedic surgery consulted and ff. -EKG reviewed. Chest x-ray suggests patient may have COPD but otherwise clear. Echo and nuclear stress test pending. -Sewing Machine Maintenance Mechanic consulted for cardiac clearance. At the moment patient is moderate risk pending final workup. 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 Patient will need a DEXA scan as outpatient. Exertional dyspnea -Most likely patient has COPD. Patient told can follow-up as outpatient and have a pulmonary function test done. Patient stated that she understood. History of tachycardia/GERD/anxiety -Continue home medication. DVT prophylaxis -SCDs Discharge Planning Pending echo and nuclear stress test. Most likely patient will be scheduled for surgery tomorrow. Marlene Sharma MD Feb 23, 2017 13:48
[2017-02-23] MEDS: ACETAMINOPHEN/HYDROcodone 325 MG/5 MG TAB PO PRN (14:37)
--- NOTE | 2017-02-23 15:00 | RADRPT ---
EXAM DATE/TIME: 02/23/2017 12:41 [facility] COMPARISON: No previous studies available for comparison. INDICATIONS : Mid chest pain for one day. Angina. DOSE: 25.5 mCi Tc99m Myoview at stress. 8.1 mCi Tc99m Myoview at rest. 0.4 mg Lexiscan STRESS SYMPTOMS: None noted. EJECTION FRACTION: > 70% MEDICAL HISTORY : None SURGICAL HISTORY : Thyroidectomy. ENCOUNTER: Initial ACUITY: 1 day PAIN SCALE: 5/10 LOCATION: Midsternal chest TECHNIQUE: The patient underwent pharmacologic stress with infusion of prescribed dose. Continuous ECG tracing was monitored during stress. Gated SPECT imaging was performed after stress and conventional SPECT i maging was performed at rest. The examination was performed on a SPECT/CT scanner, both attenuation and non-corrected datasets were reviewed. FINDINGS: DISTRIBUTION: The maximum perfused segment at stress is in the anterior wall. PERFUSION STUDY: The pattern of perfusion at stress is within normal limits. GATED STUDY: There is intact wall motion and thickening without hypokinetic or dyskinetic segments. CONCLUSION: Normal examination. RISK CATEGORY: Low (<1% Annual Mortality Rate) Basim Brizuela MD on February 23, 2017 at 14:57 Board Certified Radiologist. This report was verified electronically.
[2017-02-23 17:24] LABS: BICARBONATE 28.5 MEQ/L (21.0-32.0); POTASSIUM 3.6 MEQ/L (3.5-5.1)
--- NOTE | 2017-02-23 20:00 | ECHRPT ---
Indication: Shortness of breath CONCLUSIONS Normal left ventricular size. Mild concentric left ventricular hypertrophy. No regional wall motion abnormalities are present. Normal LV systolic function, estimated EF 65%. There is a prominent basal left ventricular septum with dynamic outflow tract obstruction consistent with obstructive physiology. LV outflow tract peak gradient 64 mmHg, mean gradient 33 mmHg. Mitral annular calcification is present. [id number]-bbidpt mitral valve regurgitation. Aortic valve sclerosis is present. Mild thickening of the aortic valve leaflets. Moderate aortic valve regurgitation. No aortic valve stenosis. There is moderate tricuspid regurgitation. The estimated pulmonary arterial pressure is 38mmHg. BP: 159 / 74 HR: 75 Rhythm: Sinus MEASUREMENTS (Male / Female) Normal Values Technical Quality:Good 2D ECHO LV Diastolic Diameter PLAX 4.2 cm 4.2 - 5.9 / 3.9 - 5.3 cm LV Systolic Diameter PLAX 2.9 cm IVS Diastolic Thickness 1.0 cm 0.6 - 1.0 / 0.6 - 0.9 cm LVPW Diastolic Thickness 0.7 cm 0.6 - 1.0 / 0.6 - 0.9 cm LV Relative Wall Thickness 0.4 RV Internal Dim ED PLAX 2.2 cm LA Systolic Diameter LX 2.9 cm 3.0 - 4.0 / 2.7 - 3.8 cm M-MODE Aortic Root Diameter MM 3.2 cm AV Cusp Separation MM 1.9 cm DOPPLER AV Peak Velocity 439.0 cm/s AV Peak Gradient 77.1 mmHg AV Mean Gradient 33.0 mmHg AV Velocity Time Integral 97.5 cm LVOT Peak Velocity 258.0 cm/s LVOT Peak Gradient 26.6 mmHg LVOT Velocity Time Integral 61.4 cm MV Peak Velocity 123.0 cm/s MV Peak Gradient 6.1 mmHg MV Mean Velocity 80.3 cm/s MV Mean Gradient 3.0 mmHg MV Area PHT 2.9 cm MR Peak Velocity 747.0 cm/s MR Peak Gradient 223.2 mmHg Mitral E Point Velocity 91.9 cm/s Mitral A Point Velocity 107.0 cm/s Mitral E to A Ratio 0.9 TR Peak Velocity 288.0 cm/s TR Peak Gradient 33.2 mmHg FINDINGS LEFT VENTRICLE Normal left ventricular size. Mild concentric left ventricular hypertrophy. The left ventricular systolic function is normal with an estimated ejection fraction in the range of 60-65%. No regional wall motion abnormalities are present. There is a prominent basal left ventricular septum with dynamic outflow tract obstruction consistent with obstructive physiology. RIGHT VENTRICLE Normal right ventricular size and systolic function. LEFT ATRIUM The left atrial size is normal. RIGHT ATRIUM The right atrial size is normal. ATRIAL SEPTUM Normal atrial septal thickness without atrial level shunting by limited color doppler interrogation. AORTA The aortic root and proximal ascending aorta are normal in size on limited imaging. MITRAL VALVE Mitral annular calcification is present. [id number] mitral valve regurgitation. AORTIC VALVE Aortic valve sclerosis is present. Mild thickening of the aortic valve leaflets. Moderate aortic valve regurgitation. Aortic valve mean gradient is 33 mmHg. No aortic valve stenosis. TRICUSPID VALVE There is moderate tricuspid regurgitation. The estimated pulmonary arterial pressure is 38mmHg. PULMONARY VALVE The pulmonary valve is not well visualized. VESSELS The inferior vena cava is normal in size. PERICARDIUM No pericardial effusion. Tessy Hughes MD, FACC (Electronically Signed) Final Date:23 February 2017 19:58
[2017-02-23] MEDS: cloNIDine HCL 0.1 MG TAB PO PRN (20:59)
--- NOTE | 2017-02-23 21:08 | EKG ---
Date Performed: 02/22/2017 Time Performed: 18:45:03 PTAGE: 81 years EKG: Sinus rhythm NONSPECIFIC ST & T-WAVE ABNORMALITY BORDERLINE ECG NO PREVIOUS TRACING DOCTOR: Tessy Hughes Interpretating Date/Time 02/23/2017 21:06:25
[2017-02-24 00:26] VITALS: BP 170/86; PULSE 94; RESP 18; TEMP 100.7; O2SAT 94
[2017-02-24] MEDS: ACETAMINOPHEN/HYDROcodone 325 MG/5 MG TAB PO PRN (00:27)
[2017-02-24 04:23] VITALS: BP 154/80; PULSE 80; RESP 18; TEMP 99; O2SAT 94
--- NOTE | 2017-02-24 06:48 | PD.ORT.PN ---
Subjective Subjective Remarks Pain controlled. Cardiac clearance and will move forward with surgery today Objective Vitals Vital Signs Date Time Temp Pulse Resp B/P Pulse Ox O2 Delivery O2 Flow Rate FiO2 02/24/17 04:23 99.0 80 18 154/80 94 02/24/17 00:26 100.7 94 18 170/86 94 02/23/17 23:00 94 02/23/17 21:40 77 168/79 02/23/17 20:27 99.3 80 17 184/81 96 02/23/17 20:00 87 02/23/17 20:00 96 Nasal Cannula 3.00 02/23/17 15:50 98.6 78 18 159/75 96 02/23/17 11:44 97.5 69 18 140/66 96 02/23/17 08:00 98.6 71 18 153/71 95 I/O 02/23/17 02/23/17 02/23/17 02/24/17 02/24/17 02/24/17 07:00 15:00 23:00 07:00 15:00 23:00 Intake Total 461 ml 240 ml 1009 ml Balance 461 ml 240 ml 1009 ml Intake Oral 240 ml 360 ml IV Total 461 ml 649 ml # Voids 5 2 # Bowel Movements 0 0 Result Diagram: 02/23/17 0551 02/23/17 1539 Imaging Last 72 hours Impressions Wrist X-Ray 02/22/17 0000 Signed Impressions: Service Date/Time: Wednesday, February 22, 2017 15:28 - CONCLUSION: Status post closed reduction and casting of right distal radial and ulnar fractures with some residual dorsal displacement of the radial fracture fragment. Kevin Montano MD Wrist X-Ray 02/22/17 0000 Signed Impressions: Service Date/Time: Wednesday, February 22, 2017 13:29 - CONCLUSION: 1. Acute displaced and angulated fracture involving the right distal radius. 2. Acute fracture involving the distal ulna. 3. 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 4. 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 Kevin Montano MD Pelvis X-Ray 02/22/17 0000 Signed Impressions: Service Date/Time: Wednesday, February 22, 2017 13:35 - CONCLUSION: 1. No acute fracture or dislocation. 2. Degenerative changes involving the lower lumbar spine. Kevin Montano MD Hand X-Ray 02/22/17 0000 Signed Impressions: Service Date/Time: Wednesday, February 22, 2017 13:27 - CONCLUSION: 1. Acute displaced, angulated fracture involving the right distal radius. 2. Acute fracture involving the distal ulna. 3. 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 4. Severe osteoporosis involving the bones of the right hand. Kevin Montano MD Chest X-Ray 02/22/17 0000 Signed Impressions: Service Date/Time: Wednesday, February 22, 2017 17:29 - CONCLUSION: 1. No acute disease. 2. Hyperinflation suggesting COPD. 3. Mild cardiomegaly. Jj Miller Jr., MD Objective Remarks Right upper extremity: Sugar tong splint intact. No pain shoulder. Distally intact sensation of her radial ulnar and median nerve distributions with good capillary refills. She is able to move her fingers both full extension and flexion Assessment & Plan Assessment and Plan Angulated right distal radius fracture Maintain splint Nothing by mouth Surgery this morning with Dr. Robert Yoo,Yayo Sykes Jr. PA Feb 24, 2017 06:48
[2017-02-24] MEDS ORDERED: ERGO1CAP30 PO (06:49)
[2017-02-24] MEDS ORDERED: HYDR-3580 PO (06:49)
[2017-02-24] MEDS ORDERED: CALCTAB19 PO (06:49)
[2017-02-24 08:00] VITALS: BP 104/59; PULSE 67; RESP 18; TEMP 97.8; O2SAT 97
[2017-02-24] MEDS ORDERED: FAMOTIDINE 20 MG/2 ML VIAL ONE (08:25)
[2017-02-24] MEDS ORDERED: MIDAZOLAM HCL 2 MG/2 ML VIAL ONE (08:25)
[2017-02-24] MEDS ORDERED: ceFAZolin INJ 1,000 MG VIAL ONE (08:27)
[2017-02-24] MEDS ORDERED: VANCOMYCIN HCL 1000 MG VIAL ONE (08:27)
[2017-02-24] MEDS ORDERED: GENTAMICIN SULFATE 80 MG/2 ML VIAL ONE (08:28)
[2017-02-24] MEDS: SODIUM CHLOR 0.45% 1000 ML INJ 1,000 ML IV SCH (09:00)
[2017-02-24] MEDS: SODIUM CHLORIDE 0.9% FLUSH 10 ML FLUSH IV FLUSH SCH (09:00)
[2017-02-24] MEDS: DILTIAZEM HCL 30 MG TAB PO SCH (09:00)
[2017-02-24] MEDS: PANTOPRAZOLE SOD 40 MG DELAYED RELEASE TAB PO SCH (09:00)
[2017-02-24] MEDS: PARoxetine HCL 20 MG TAB PO SCH (09:00)
[2017-02-24] MEDS ORDERED: BUPIVACAINE/EPINEPHRINE 0.25% 50 ML VIAL ONE (09:04)
--- NOTE | 2017-02-24 09:35 | PD.OP ---
cc: Mane Thompson MD Operative Report Date of Surgery: Feb 24, 2017 Preoperative Diagnosis: Displaced right distal radius fracture Postoperative Diagnosis: Procedure: Open reduction total fixation right distal radius Anesthesia: Gen. Surgeon: Mane Thompson [employer] Driver(s): JAIMIE Stewart PA-C The surgical procedure was assisted by my physician certified surgical tech/first assistant. My P.A. presence was necessary throughout this case for the manipulation and positioning of the surgical extremity. My P.A. was assisting me throughout the duration of this procedure. The skill set of a physician certified surgical tech/first assistant was medically necessary to complete this procedure. During the surgical case the surgical forceps fabricator was working at the back table and the physician certified surgical tech/first assistant was directly assisting me. Operation and Findings: Patient was seen and evaluated preoperatively and found to have a displaced right distal radius fracture. Informed consent was obtained after detailed discussion of risk and benefits including bleeding, infection, injury to arteries, nerves, and blood vessels, weakness and numbness of hand, and tendon rupture. Informed consent was obtained. Patient received IV antibiotics prior to incision. Timeout procedure was performed. Operative extremity was prepped with alcohol followed by Hibiclens and draped usual sterile fashion. A standard volar approach to the distal radius was utilized. A 3 inch incision was made over the FCR tendon. Tendon sheath was opened. Pronator quadratus was elevated up. The fracture site was now visualized. The fracture did have intra-articular extension. Traction was applied. The articular surface was reduced. Fracture fragments were manipulated to achieve excellent reduction. K wires were used to hold provisional fixation. Fluoroscopy confirmed appropriate alignment of fracture. A Synthes 2 column variable angle distal radius plate was selected. Plate was provisionally fixed to bone with K wires. 2.7 and 2.4 cortical screws were used to compress plate to bone. Fluoroscopy confirmed appropriate alignment of fracture with well-placed hardware. Multiple 2.4 locking screws were now placed distally. Screws were predrilled and measured for appropriate length. 2 additional screws were placed into the shaft. K wires were removed. Final fluoroscopy revealed excellent of fracture with well-placed hardware. The wound was thoroughly irrigated with sterile saline. Subcutaneous tissue was closed with 3-0 Vicryl and skin was closed with 3-0 nylon. Sterile dressings were applied with Xeroform, 4 x 4, soft roll , and a well padded volar splint. Patient was awakened and transferred to recovery room in stable condition Mane Thompson MD Feb 24, 2017 09:35
[2017-02-24] MEDS ORDERED: ACETAMINOPHEN/HYDROcodone 325 MG/7.5 MG TAB PO PRN (09:45)
[2017-02-24] MEDS ORDERED: MORPHINE SULFATE 4 MG/ML INJ IV PUSH PRN (09:45)
[2017-02-24] MEDS ORDERED: DO NOT ADM ANY ANTICOAGULANT DRUGS PRN (09:57)
[2017-02-24] MEDS ORDERED: fentaNYL CITRATE 250 MCG/5 ML AMP ONE (10:02)
--- NOTE | 2017-02-24 11:36 | HHI.DCPOC ---
Discharge Care Plan Diagnosis: (1) Fracture of distal end of radius and ulna Goals to Promote Your Health * To prevent worsening of your condition and complications * To maintain your health at the optimal level Directions to Meet Your Goals Take your medications as prescribed Follow your dietary instruction Follow activity as directed Keep your appointments as scheduled Take your immunizations and boosters as scheduled If your symptoms worsen call your PCP, if no PCP go to Urgent Care Center or Emergency Room Smoking is Dangerous to Your Health. Avoid second hand smoke Call the 24-hour hour crisis hotline for domestic abuse at Marlene Sharma MD Feb 24, 2017 11:36
[2017-02-24 12:00] VITALS: BP 150/70; PULSE 84; RESP 18; TEMP 96; O2SAT 98
[2017-02-24] MEDS ORDERED: PROPOFOL 200 MG/20 ML AMP IV ONE (12:00)
[2017-02-24] MEDS ORDERED: ePHEDrine/NS 25 MG/5 ML SYR IV ONE (12:00)
[2017-02-24] MEDS ORDERED: ONDANSETRON HCL 4 MG/2 ML VIAL IV PUSH ONE (12:00)
[2017-02-24 12:11] VITALS: PULSE 77
--- NOTE | 2017-02-24 14:04 | PD.CARD.PN ---
Subjective Subjective Remarks Feels well. No CP, dyspnea, dizziness. Objective Medications Item Value Date Time Diltiazem HCl 30 mg 02/23/17 0900 (Cardizem) DAILY/PO Vital Signs / I&O Vital Signs Date Time Temp Pulse Resp B/P Pulse Ox O2 Delivery O2 Flow Rate FiO2 02/24/17 12:11 77 02/24/17 11:00 79 14 155/74 95 Room Air 02/24/17 10:45 76 14 158/74 97 Nasal Cannula 2 02/24/17 10:30 78 14 174/81 98 Nasal Cannula 2 02/24/17 10:15 83 14 172/84 99 Nasal Cannula 2 02/24/17 09:57 97.6 78 14 169/77 99 Nasal Cannula 4 02/24/17 08:00 97.8 67 18 104/59 97 02/24/17 04:23 99.0 80 18 154/80 94 02/24/17 00:26 100.7 94 18 170/86 94 02/23/17 23:00 94 02/23/17 21:40 77 168/79 02/23/17 20:27 99.3 80 17 184/81 96 02/23/17 20:00 87 02/23/17 20:00 96 Nasal Cannula 3.00 02/23/17 15:50 98.6 78 18 159/75 96 I/O 02/23/17 02/23/17 02/23/17 02/24/17 02/24/17 02/24/17 07:00 15:00 23:00 07:00 15:00 23:00 Intake Total 461 ml 240 ml 1009 ml 579 ml 900 ml Output Total 50 ml Balance 461 ml 240 ml 1009 ml 579 ml 850 ml Intake Oral 240 ml 360 ml 0 ml IV Total 461 ml 649 ml 579 ml 200 ml Other 700 ml Output Estimated Blood Loss 50 ml # Voids 5 2 2 # Bowel Movements 0 0 0 Physical Exam GENERAL: Well developed, well nourished. No acute distress. HEENT: Jugular venous pressure is normal. CHEST: Lungs clear to auscultation bilaterally. Unlabored respiratory effort. CARDIAC: Regular rate and rhythm without S3, S4. III/ diffuse systolic murmur. Normal S2. ABDOMEN: Soft, nontender, no hepatosplenomegaly. Bowel sounds present. EXTREMITIES: No clubbing, cyanosis, or edema. Laboratory Laboratory Tests Test 02/23/17 15:39 Sodium Level 136 MEQ/L Potassium Level 3.6 MEQ/L Chloride Level 101 MEQ/L Carbon Dioxide Level 28.5 MEQ/L Anion Gap 7 MEQ/L Blood Urea Nitrogen 15 MG/DL Creatinine 1.23 MG/DL Estimat Glomerular Filtration 42 ML/MIN Rate Random Glucose 216 MG/DL Calcium Level 8.5 MG/DL Assessment and Plan Problem List: (1) Hypertrophic obstructive cardiomyopathy (HOCM) Assessment and Plan: Echo this admission reportedly shows evidence for HOCM though interventricular septal thickness was measured at only 1.0 cm and no mention of systolic anterior motion of the mitral valve. EF normal. No history of syncope. I have recommended she f/u soon and regularly with a program director near home in [place]. (2) Chest pain Assessment and Plan: Chronic, stable CP symptoms. Normal nuclear stress test yesterday. Some of symptoms possibly from HOCM. She is to f/u with a program director in [place]. Code Status No Code Discussed Condition With patient and her 2 daughters Problem Qualifiers (1) Chest pain: Qualified Code: R07.9 - Chest pain, unspecified type Solis Ricardo MD Feb 24, 2017 14:04
--- NOTE | 2017-02-24 15:27 | RADRPT ---
EXAM DATE/TIME: 02/24/2017 09:25 [facility] COMPARISON: WRIST RIGHT LIMITED(AP & LAT), February 22, 2017, 15:28. INDICATIONS : ORIF right wrist. MEDICAL HISTORY : None. SURGICAL HISTORY : None. ENCOUNTER: Subsequent ACUITY: 2 days PAIN SCORE: Non-responsive. LOCATION: Right wrist. FINDINGS: The patient is status post ORIF of right distal radial fracture with hardware in good position. CONCLUSION: Status post ORIF of right distal radial fracture with hardware in good position. Kevin Montano MD on February 24, 2017 at 15:22 Board Certified Radiologist. This report was verified electronically.
--- NOTE | 2017-02-24 16:30 | HHI.DS ---
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 Patient is visiting from [place] and stated that she used a spray for some block in the house which on the tile. Patient stated that she slipped because of this and landed on her butt on an outstretched arm. Patient did not hit her head or lose any consciousness. Patient stated that she had severe pain so was brought to the emergency department. Patient stated that in the past she had right hip surgery and after surgery she had respiratory failure from anesthesia was in the ICU for a few days. Patient stated that she does get dyspnea with walking from her bedroom to the living room. She denies any chest pain, lightheadedness or dizziness or palpitation with exertion. She stated that this has been a chronic problem. Patient stated that she was supposed to be worked up by pool manager but has not followed with a pool manager yet. CBC/BMP: 02/23/17 0551 02/23/17 1539 Significant Findings Laboratory Tests Test 02/22/17 02/23/17 02/23/17 13:52 05:51 15:39 White Blood Count 14.4 TH/MM3 (4.0-11.0) Mean Platelet Volume 6.7 FL (7.0-11.0) Neutrophils (%) (Auto) 86.1 % (16.0-70.0) Neutrophils # (Auto) 12.4 TH/MM3 (1.8-7.7) Prothrombin Time 15.1 SEC (9.8-11.6) Blood Urea Nitrogen 19 MG/DL (7-18) Creatinine 1.43 MG/DL 1.18 MG/DL 1.23 MG/DL (0.50-1.00) (0.50-1.00) (0.50-1.00) Estimat Glomerular Filtration 35 ML/MIN (>89) 44 ML/MIN (>89) 42 ML/MIN (>89) Rate Random Glucose 244 MG/DL 197 MG/DL 216 MG/DL (74-106) (74-106) (74-106) Platelet Count 114 TH/MM3 (150-450) Potassium Level 3.3 MEQ/L (3.5-5.1) PE at Discharge GENERAL: This is a well-nourished, well-developed patient, in no apparent distress. CARDIOVASCULAR: Regular rate and rhythm without murmurs, gallops, or rubs. RESPIRATORY: Clear to auscultation. Breath sounds equal bilaterally. No wheezes , rales, or rhonchi. GASTROINTESTINAL: Abdomen soft, non-tender, nondistended. No hepato-splenomegaly , or palpable masses. No guarding. MUSCULOSKELETAL: Right arm swelling with limited range of motion of the wrist. NEUROLOGICAL: Awake and alert. Cranial nerves II through XII intact. Motor and sensory grossly within normal limits. Five out of 5 muscle strength in all muscle groups. Normal speech. Hospital Course 81-year-old female who presented with a mechanical fall Acute displaced and angulated fracture involving the right distal radius and acute fracture involving the distal ulna. -Orthopedic surgery consulted and recommended surgery. -Patient does have a baseline dyspnea and past complications after surgery. Will need to consult pool manager for cardiac clearance. -Will get EKG, chest x-ray, echo. -Will have patient nothing by mouth tonight. 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 Patient will need a DEXA scan as outpatient. Exertional dyspnea -Unknown diagnosis. This has been patient's baseline. -see workup as above. History of tachycardia/GERD/anxiety -Will restart home medication. DVT prophylaxis -SCDs Pt Condition on Discharge: Good Discharge Disposition: Discharge Home Discharge Time: <= 30 minutes Discharge Instructions DIET: Follow Instructions for: As Tolerated, No Restrictions Activities you can perform: See Additionl Instruction Other Activity Instructions: keep in sling. as directed by Orthopedic surgeon. Marlene Sahrma MD Feb 24, 2017 16:30
== END 2017-02-24 14:17 | disposition home or self-care (01) | DRG 511 ==
LOC: NEPD 12:09 → NEDA 16:29 → N06A 18:51
PROVIDERS: ADMIT Family Medicine; ATTEND Family Medicine
PROC: 0PSHXZZ Reposition Right Radius, External Approach (ICD-10-PCS; 2017-02-22)
PROC: 0PSKXZZ Reposition Right Ulna, External Approach (ICD-10-PCS; 2017-02-22)
PROC: 0PSH04Z Reposition Right Radius with Internal Fixation Device, Open Approach (ICD-10-PCS; principal; 2017-02-24 08:37)
DX: S52.501A Unspecified fracture of the lower end of right radius, initial encounter for closed fracture (principal); I42.1 Obstructive hypertrophic cardiomyopathy; R06.00 Dyspnea, unspecified; E11.9 Type 2 diabetes mellitus without complications; F32.9 Major depressive disorder, single episode, unspecified; Z96.649 Presence of unspecified artificial hip joint; S52.601A Unspecified fracture of lower end of right ulna, initial encounter for closed fracture; W01.0XXA Fall on same level from slipping, tripping and stumbling without subsequent striking against object, initial encounter; F41.9 Anxiety disorder, unspecified; K21.9 Gastro-esophageal reflux disease without esophagitis; R01.1 Cardiac murmur, unspecified; M19.90 Unspecified osteoarthritis, unspecified site; M81.0 Age-related osteoporosis without current pathological fracture; Z66 Do not resuscitate; Z86.73 Personal history of transient ischemic attack (TIA), and cerebral infarction without residual deficits; Y92.013 Bedroom of single-family (private) house as the place of occurrence of the external cause; Z87.891 Personal history of nicotine dependence
CPT/HCPCS: 71020; 72170; 73100; 73110; 73120; 76000; 78452; 80048; 82652; 85025; 85027; 85610; 85730; 86850; 86900; 86901; 93005; 93017; 93306; 96374; C1713; A9502; J0690; J1580; J2250; J2270; J2405; J2785; J3010; J3370